=== PATIENT | female | born 2000 | race Two or more races ===

== ENCOUNTER 2023-12-05 15:07 | Inpatient (IN) | payer OTHER ==
[~2023-12-05] VITALS: Ht 152.4 cm; Wt 68.0 kg
[~2023-12-05 15:07] MED LIST: CEFADROXIL500 MG PO
[2023-12-05] MEDS ORDERED: ALBUTEROL SULFATE 3 ML/2.5 MG AMPUL.NEB IH SCH (16:30)
[2023-12-05] MEDS ORDERED: ALBUTEROL SULFATE 3 ML/2.5 MG AMPUL.NEB IH ONE (17:09)
[2023-12-05 17:13] LABS: HEMATOCRIT 36.6 % (36.0-45.00); HEMOGLOBIN 12.4 g/dL (12.0-15.00); MEAN CELL VOLUME 94.4 fL (80.00-100.00); MEAN CORPUSCULAR HEMOGLOBIN 32.1 pg (27.00-32.0); PLATELET COUNT 220 K/uL (150-450); RED BLOOD COUNT 3.88 M/uL (4.00-6.00); RED CELL DISTRIBUTION WIDTH 13.5 % (11.5-14.5)
[2023-12-05 17:21] LABS: ABG PH 7.428 (7.35-7.45); ABG PO2 87.7 mmHg (80-100); ABG pCO2 35.3 mmHg (35-45); BICARBONATE 22.8 mmol/l (23-25); SaO2 96.9 %; Tco2 23.9 mmol/l
[2023-12-05 18:36] LABS: allen test SATISFACTORY; o2 21 %; puncture site RADIAL LEFT
[2023-12-05] MEDS ORDERED: CEFTRIAXONE SODIUM 1,000 MG VIAL IV ONE (19:30)
[2023-12-05] MEDS ORDERED: CEFTRIAXONE SODIUM 1,000 MG VIAL ONE (19:36)
[2023-12-05 19:47] LABS: PH,URINE 7.5 (5.0-8.0); URINE BILIRRUBIN Negative (NEGATIVE); URINE BLOOD Negative; URINE COLOR Dark Yellow; URINE GLUCOSE Negative (NEGATIVE); URINE LEUKOCYTE Small; URINE NITRATE Negative; URINE PROTEIN 30 (NEGATIVE)
[2023-12-05 19:50] LABS: URINE CAST 1.52 uL (0.0-1.40); URINE EPITHELIAL CELLS 52.5 uL (0.0-38.8); URINE RBC 57.8 uL (0.0-20.8); URINE WBC 90.6 uL (0.0-23.2)
[2023-12-05 20:02] LABS: URINE KETONE 80 (NEGATIVE)
[2023-12-05 20:03] LABS: URINE APPEARANCE SL CLOUDY
[2023-12-05] MEDS ORDERED: FAMOTIDINE/PF 20 MG in 0.9 % SODIUM CHLORIDE 8 ML IV PUSH SCH (22:41)
[2023-12-05] MEDS ORDERED: CEFTRIAXONE SODIUM 2,000 MG in 0.9 % SODIUM CHLORIDE 100 ML IV SCH (22:41)
[2023-12-05] MEDS ORDERED: ACETAMINOPHEN 500 MG GEL..CAP PO PRN (22:45)
[2023-12-05] MEDS ORDERED: 0.9 % SODIUM CHLORIDE 1,000 ML IV SCH (22:45)
[2023-12-05] MEDS ORDERED: ONDANSETRON HCL 4 MG in 0.9 % SODIUM CHLORIDE 50 ML IV PRN (22:45)
[2023-12-06] MEDS ORDERED: CEFTRIAXONE SODIUM 2,000 MG VIAL ONE (01:51)
[2023-12-06] MEDS ORDERED: FAMOTIDINE/PF 20 MG/2 ML VIAL ONE ×2 (01:52→08:38)
[2023-12-06 03:04] LABS: INR 1.21; PARTIAL THROMBOPLASTIN TIME 32.3 SECONDS (22.0-34.0); PROTHROMBIN TIME 12.5 SECONDS (9.0-11.5)
[2023-12-06 03:08] LABS: ALBUMIN 4.1 gm/dL (3.4-5.0); BILIRUBIN TOTAL 0.41 mg/dL (0.3-1.2); CALCIUM 9.3 mg/dL (8.5-10.1); CREATININE SERUM 0.65 mg/dL (0.55-1.02); GFR 115.06; POTASSIUM 3.46 mEq/L (3.5-5.1); TOTAL PROTEIN 8.1 gm/dL (6.4-8.2)
[2023-12-06] MEDS ORDERED: ACETAMINOPHEN 500 MG GEL..CAP PO ONE (03:42)
[2023-12-06] MEDS ORDERED: CEFTRIAXONE SODIUM 1,000 MG VIAL ONE (08:44)
[2023-12-06] MEDS ORDERED: CLINDAMYCIN PHOSPHATE 600 MG in DEXTROSE 5 % IN WATER 50 ML IV SCH (11:49)
[2023-12-07] MEDS ORDERED: LACTOBACILLUS ACIDOPHILUS 1 CAP CAP PO SCH (17:00)
[2023-12-08 07:13] LABS: HEMATOCRIT 31.6 % (36.0-45.00); MEAN CELL VOLUME 94.4 fL (80.00-100.00); MEAN CORPUSCULAR HEMOGLOBIN 32.8 pg (27.00-32.0); MEAN CORPUSCULAR HGB CONC 34.8 g/dl (32.0-36.0); PLATELET COUNT 214 K/uL (150-450); RED BLOOD COUNT 3.35 M/uL (4.00-6.00); RED CELL DISTRIBUTION WIDTH 13.7 % (11.5-14.5)
[2023-12-08 07:29] LABS: ERYTHROCYTE SEDIMENTATION RATE 17 mm/hr
[2023-12-08 07:37] LABS: ALBUMIN 3.1 gm/dL (3.4-5.0); BILIRUBIN TOTAL 0.23 mg/dL (0.3-1.2); CALCIUM 8.7 mg/dL (8.5-10.1); CREATININE SERUM 0.46 mg/dL (0.55-1.02); GFR 171.48; GLOBULINA 2.8 G/DL (2.4-3.5); POTASSIUM 4.1 mEq/L (3.5-5.1); TOTAL PROTEIN 5.9 gm/dL (6.4-8.2)
[2023-12-08 07:40] LABS: C-REACTIVE PROTEIN 2.35 MG/DL (0.00-0.29)
== END 2023-12-11 09:49 | disposition home or self-care (01) | DRG 872 ==
LOC: ER 15:08 → SURH 22:42
PROVIDERS: Emergency Medicine; General Practice; ADMIT Internal Medicine; ATTEND Internal Medicine
PROC: BW21ZZZ Computerized Tomography (CT Scan) of Abdomen and Pelvis (ICD-10-PCS; principal; 2023-12-05)
PROC: BW28ZZZ Computerized Tomography (CT Scan) of Head (ICD-10-PCS; 2023-12-05)
DX: A41.9 Sepsis, unspecified organism (principal); N39.0 Urinary tract infection, site not specified; J22 Unspecified acute lower respiratory infection; J02.9 Acute pharyngitis, unspecified; J32.8 Other chronic sinusitis